=== PATIENT | male | born 1955 | race Caucasian/White ===

== ENCOUNTER → 2018-05-30 | Outpatient (CLI) | payer OTHER ==
[~2018-05-30] MED LIST: CELEBREX 200 M200 M1 PO; IBUPROFEN 800800 M1 PO; LISINOPRIL20 MG PO; METFORMIN HCL500 MG PO
== END ==
LOC: M.RAD 10:27
DX: M19.042 Primary osteoarthritis, left hand (principal); M19.041 Primary osteoarthritis, right hand; M19.032 Primary osteoarthritis, left wrist; M19.031 Primary osteoarthritis, right wrist